=== PATIENT | female | born 1950 | race Caucasian/White ===

== ENCOUNTER 2024-04-09 13:49 | Outpatient (AMB) | payer MEDICARE, SELFPAY ==
--- NOTE | 2024-04-09 13:48 | A.OFFPC_ITS ---
Vital Signs 04/09/24 14:10 Height 5 ft 10 in Weight 218 lb 4 oz BMI 31.3 BP 102/50 L Blood Pressure Location Lt brachial Position Sitting Respiration 16 Pulse 85 Pulse Source Pulse Oximeter Temp 97.8 F Temp Source Oral Pulse Oximetry (%) 95 Oxygen Delivery Method Room Air Intake Visit Reasons: PROPOSAL MANAGER- Establish care/hbp/lung problems Intake Note: New patient visit. Went to [facility] couple weeks ago Sole Rougher Required: No Allergies No Known Allergies Allergy (Verified 04/09/24 14:03) Tobacco use date assessed: 04/09/24 Fall risk assessment: 1 Fall in past year Dental Screening Dental Screen Date: 04/09/24 Did you have a dental visit in the last 12 months?: Yes Did you have a dental problem in the last 6 months where you did not have access to dental care?: No Was dental information given to patient?: Patient has dentist HPI PROPOSAL MANAGER- Establish care/hbp/lung problems HPI Details Patient is a 73-year-old female with a significant past medical history of hypertension, CKD, history of abdominal aortic aneurysm, impaired fasting glucose, hyperlipidemia, hypothyroidism, GERD, fatty liver/early cirrhosis, COPD, pulmonary nodules, sleep apnea presenting today to establish care/follow up. She is transferring from [facility]. She lives 6 months of the year in [place] and has a PCP there. Pulm: She was recently hospitalized at [facility] for hypoxia and is now O2 dependent. She states that she does not actually believe that this is related to her lungs. Every time she goes and stands up her oxygen drops down to 80 or 70. She states that she was sent there from her ore dressing engineer's office, Dr. Clements to rule out PE. She states that they could not come up with a reason for her oxygen to be so low. She states that she repeated her PFTs and they were stable/unchanged from her baseline PFTs. He ordered an echo and she states that this was done yesterday and she has an appointment with him today at 03:30 to get the test results. She states that she needs a referral to Cardiology here. She has 1 in [place] and saw her groover and turner at the end of February but did not have anything happened. She states that she was stable when she saw her groover and turner and then when she got here a couple weeks ago she felt very weak whenever she would get up. She has dyspnea with exertion and states that she is at her baseline with it. She says that she does not really feel like this is a breathing issue. She has been wearing a pulse ox at home and has noticed at times her pulses as low as 40. CV: Blood pressure today in the office is 102/50. She last saw her groover and turner end of February and no changes were made. She says that she did have a stress test within the last couple years which was negative. She is currently on amlodipine 5 mg, losartan 100 mg and furosemide 10 mg daily. GI: She had an ultrasound 2 weeks ago and states it was unchanged. She follows with GI, Dr. Ren and sees him next month. Endo: Believes her last TSH was WNL. On levothyroxine 137 mcg.. [facility], [facility] Medical History (Updated 04/09/24 @ 14:42 by Rachel Tian PA-C) History of gastrectomy Steatosis of liver Sleep apnea Herpes simplex labialis Pulmonary emphysema Polyp of colon Class 1 obesity Multiple nodules of lung Lung mass Kidney stones Hypothyroidism HTN (hypertension) HLD (hyperlipidemia) GERD (gastroesophageal reflux disease) Diffuse goiter Depressive disorder Cyst of breast Cirrhosis of liver Chronic obstructive lung disease Benign neoplasm of colon Aortic stenosis Allergic rhinitis Abnormal glucose AAA (abdominal aortic aneurysm) Surgical History (Updated 04/09/24 @ 14:00 by Naomy Adam CMA) History of oophorectomy, unilateral History of total knee arthroplasty History of breast surgery Hx of laparoscopic gastric banding Hx of cholecystectomy S/P laparoscopic sleeve gastrectomy S/P AAA repair Social History (Updated 04/09/24 @ 14:05 by Naomy Adam CMA) Housing: House Patient Tobacco Use Status: Former Tobacco user Cigarette Packs Per Day: 2 Years Smoked: 20 e-Cigarette/Vaping Use: Never Used Second Hand Smoke Exposure: No service: No Current occupational status: retired Cognitive needs: No Hearing needs: No Vision needs: Yes (Reading glasses) Physical exam (Primary Care) Const Orientation/consciousness: patient oriented x3 HENMT Ears: hearing grossly normal bilaterally Neck Thyroid: Thyroid normal Lymphatic: no lymphadenopathy noted Resp Auscultation: clear to auscultation bilaterally Cardio Rate: regular rate Rhythm: regular rhythm Heart sounds: S1 normal heart sound present and S2 normal heart sound present GI Inspection: Yes normal to inspection Palpation (GI): Soft to palpation and Other GI palpation findings present (nontender, no cva tenderness) Auscultation: normoactive bowel sounds Rectal Exam - Female: deferred Skin General skin exam: no rashes or lesions noted Neuro General: patient oriented x3, gait normal and no focal motor deficits Assessment and Plan Assessment & Plan (1) Pulmonary emphysema: Code(s): J43.9 - Emphysema, unspecified Qualifiers: Emphysema type: unspecified Qualified Code(s): J43.9 - Emphysema, unspecified Plan: Following with pulmonology. Currently oxygen dependent. Notes requested today. (2) O2 dependent: Code(s): Z99.81 - Dependence on supplemental oxygen Plan: As above (3) HTN (hypertension): Code(s): I10 - Essential (primary) hypertension Qualifiers: Hypertension type: primary hypertension Qualified Code(s): I10 - Essential (primary) hypertension Plan: Reduced dose of the losartan to 50 mg. Continue regimen otherwise. Follow up in 2-3 weeks. (4) HLD (hyperlipidemia): Code(s): E78.5 - Hyperlipidemia, unspecified Qualifiers: Hyperlipidemia type: mixed hyperlipidemia Qualified Code(s): E78.2 - Mixed hyperlipidemia Plan: On pravastatin and tolerating well. Lipids and LFTs ordered. (5) Hypoxia: Code(s): R09.02 - Hypoxemia Plan: On oxygen. Referral to Cardiology. Reports labs from hospitalization and imaging all stable. Notes were requested today. She wants to see her 's groover and turner who is at [place]. (6) Bradycardia: Code(s): R00.1 - Bradycardia, unspecified Plan: As above. Orders: Orders Complete Blood Count Auto Diff Today E78.5 - Hyperlipidemia, unspecified, I10 - Essential (primary) hypertension, J43.9 - Emphysema, unspecified, R00.1 - Bradycardia, unspecified, R09.02 - Hypoxemia, Z99.81 - Dependence on supplemental oxygen Comprehensive [place]. Panel Fast Today E78.5 - Hyperlipidemia, unspecified, I10 - Essential (primary) hypertension, J43.9 - Emphysema, unspecified, R00.1 - Bradycardia, unspecified, R09.02 - Hypoxemia, Z99.81 - Dependence on supplemental oxygen Lipid Panel Today E78.5 - Hyperlipidemia, unspecified, I10 - Essential (primary) hypertension, J43.9 - Emphysema, unspecified, R00.1 - Bradycardia, unspecified, R09.02 - Hypoxemia, Z99.81 - Dependence on supplemental oxygen TSH reflex Free T4 Today E78.5 - Hyperlipidemia, unspecified, I10 - Essential (primary) hypertension, J43.9 - Emphysema, unspecified, R00.1 - Bradycardia, uns pecified, R09.02 - Hypoxemia, Z99.81 - Dependence on supplemental oxygen Referrals Cardiology Referral I10 - Essential (primary) hypertension, R00.1 - Bradycardia, unspecified, R09.02 - Hypoxemia Medications: New losartan 50 mg PO DAILY 90 tabs 1RF Coding Level of Care Code Est Pt Level 4 (42733) Complex EM visit Add On G2211 Diagnoses Pulmonary emphysema, unspecified emphysema type J43.9 Emphysema type: unspecified O2 dependent Z99.81 Primary hypertension I10 Hypertension type: primary hypertension Mixed hyperlipidemia E78.2 Hyperlipidemia type: mixed hyperlipidemia Hypoxia R09.02 Bradycardia R00.1
[2024-04-09 14:10] VITALS: BP 102/50; PULSE 85; RESP 16; TEMP 36.6; O2SAT 95; BMI 31.3
== END 2024-04-09 14:37 | disposition home or self-care (01) ==
PROVIDERS: PCP Physician Assistant; Visit Provider Physician Assistant
DX: J43.9 Emphysema, unspecified (principal); Z99.81 Dependence on supplemental oxygen; I10 Essential (primary) hypertension; E78.2 Mixed hyperlipidemia; R09.02 Hypoxemia; R00.1 Bradycardia, unspecified
CPT/HCPCS: 99214; G2211

== ENCOUNTER 2024-04-29 09:51 | Outpatient (REF) | payer MEDICARE, SELFPAY ==
[2024-04-29 13:10] LABS: MANUAL DIFF FLAG NO
[2024-04-29 13:11] LABS: Basophils Percent Auto 0.4 % (0-2); Eosinophils Absolute Auto 0.1 X10*3/uL (0.0-0.4); Eosinophils Percent Auto 1.6 % (0-4); Hematocrit 45.6 % (37.0-47.0); Hemoglobin 14.6 g/dl (12.0-16.0); Imm Gran Abs Auto 0.04 X10*3/uL (0.00-0.03); Imm Gran Pct Auto 0.7 % (0.0-0.4); Lymphocytes Absolute Auto 1.6 X10*3/uL (1.2-4.9); Lymphocytes Percent Auto 28.9 % (20-40); Mean Corpuscular Hemoglobin 30.2 pg (27.0-33.0); Mean Corpuscular Volume 94.4 fL (80.0-98.0); Mean Platelet Volume 10.3 fL (9.4-12.3); Monocytes Absolute Auto 0.6 X10*3/uL (0.1-1.2); Monocytes Percent Auto 10.2 % (2-11); Neutrophils Absolute Auto 3.3 x10*3/uL (2.0-8.3); Neutrophils Percent Auto 58.2 % (45-73); Platelet Count 169 X10*3/uL (160-400); Red Blood Count 4.83 X10*6/uL (4.20-5.50); Red Cell Distribution Width 13.7 % (11.0-16.0); White Blood Count 5.6 X10*3/uL (4.8-10.8)
[2024-04-29 13:41] LABS: Alanine Aminotransferase 23 U/L (0-31); Albumin Level 4.2 g/dL (3.5-5.0); Alkaline Phosphatase 85 U/L (39-117); Anion Gap 12 (12-20); Aspartate Amino Transferase 28 U/L (5-31); Bilirubin Total 1.5 mg/dL (0.0-1.0); Blood Urea Nitrogen 20 mg/dL (9-16); Calcium 9.7 mg/dL (8.4-10.2); Carbon Dioxide 28 mmol/L (22-29); Chloride 107 mmol/L (96-108); Cholesterol 171 mg/dL (<200); Estimated Glomerular Filt Rate 58; Glucose Fasting 91 mg/dL (60-99); HDL Cholesterol 52 mg/dL (>40); Potassium 4.4 mmol/L (3.3-5.1); Sodium 143 mmol/L (135-145); Total Protein 7.7 g/dL (6.5-8.0)
[2024-04-29 13:56] LABS: TSH reflex Free T4 0.06 uIU/mL (0.32-4.0)
[2024-04-29 14:01] LABS: LDL Cholesterol Calculated 102 mg/dL (<100); Triglycerides 88 mg/dL (<150)
[2024-04-29 14:38] LABS: Free T4 (Free Thyroxine) 1.19 ng/dL (0.71-1.85)
== END 2024-04-29 09:52 | disposition home or self-care (01) ==
LOC: HO.WFDLDS 09:51
PROVIDERS: Visit Provider Physician Assistant
DX: R00.1 Bradycardia, unspecified (principal); R09.02 Hypoxemia; E78.5 Hyperlipidemia, unspecified; I10 Essential (primary) hypertension; Z99.81 Dependence on supplemental oxygen; J43.9 Emphysema, unspecified
CPT/HCPCS: 36415; 80053; 80061; 84439; 84443; 85025

== ENCOUNTER 2024-04-29 09:57 | Outpatient (AMB) | payer MEDICARE, SELFPAY ==
--- NOTE | 2024-04-29 09:59 | AM.OFFWIN_ITS ---
Intake Vital Signs 04/29/24 10:10 BMI Reason not done Patient refused/unable BP 128/68 Blood Pressure Location Rt brachial Pulse 62 Pulse Source Pulse Oximeter Temp 98.1 F Temp Source Oral Pulse Oximetry (%) 95 Oxygen Delivery Method Nasal Cannula Oxygen Flow Rate 2 Intake Visit Reasons: est/ uti Intake Note: UTI symptoms. Urgency. Patient Tobacco Use Status: Former Tobacco user Allergies No Known Allergies Allergy (Verified 04/29/24 10:36) Medication List - Last Reconciled 04/29/24 by SUKHDEV Katz-IQRA albuterol sulfate 90 mcg/actuation (Ventolin HFA) 1 inh inhalation QID amlodipine 5 mg PO BID cholecalciferol (vitamin D3) 1,250 mcg PO QWEEK fluoxetine 20 mg PO DAILY fluticasone propion-salmeterol 250-50 mcg/dose 1 ea inhalation BID levothyroxine 137 mcg PO DAILY losartan 50 mg PO DAILY omeprazole 20 mg PO BID pravastatin 80 mg PO DAILY torsemide 10 mg PO DAILY valacyclovir 1,000 mg PO BID Do you need a note to return to daycare/school/sports/work: No HPI HPI Comments History of Present Illness Details Here today with complaints of UTI symptoms that started a few days ago. She reports symptoms of urinary frequency with little output. Reports that she has had a UTI in the past. The last one was 1-2 years ago. Denies fever, chills, bloody urine or discharge. Furthermore she denies any renal disease, need for renal dosing. Awake alert oriented Mucous membranes moist No CVAT No suprapubic tenderness Urine dip reviewed and positive for nitrites Plan Nitrofurantoin 100 mg 1 tab p.o. b.i.d. x3 days. Vaginal hygiene. [place] hydration. Educated on reasons to return to the office or to be re- evaluated. [facility] Medical History (Updated 04/29/24 @ 10:42 by SUKHDEV Katz-IQRA) History of gastrectomy Steatosis of liver Sleep apnea Herpes simplex labialis Pulmonary emphysema Polyp of colon Class 1 obesity Multiple nodules of lung Lung mass Kidney stones Hypothyroidism HTN (hypertension) HLD (hyperlipidemia) GERD (gastroesophageal reflux disease) Diffuse goiter Depressive disorder Cyst of breast Cirrhosis of liver Chronic obstructive lung disease Benign neoplasm of colon Aortic stenosis Allergic rhinitis Abnormal glucose AAA (abdominal aortic aneurysm) Surgical History (Updated 04/09/24 @ 14:00 by Naomy Adam CMA) History of oophorectomy, unilateral History of total knee arthroplasty History of breast surgery Hx of laparoscopic gastric banding Hx of cholecystectomy S/P laparoscopic sleeve gastrectomy S/P AAA repair Social History (Updated 04/09/24 @ 14:05 by Naomy Adam CMA) Housing: House Patient Tobacco Use Status: Former Tobacco user Cigarette Packs Per Day: 2 Years Smoked: 20 e-Cigarette/Vaping Use: Never Used Second Hand Smoke Exposure: No service: No Current occupational status: retired Cognitive needs: No Hearing needs: No Vision needs: Yes (Reading glasses) Physical Exam Vital Signs: Last Vital Signs Temp 98.1 F 04/29/24 10:10 Pulse 62 04/29/24 10:10 BP 128/68 04/29/24 10:10 Pulse Ox 95 04/29/24 10:10 Oxygen Delivery Method Nasal Cannula 04/29/24 10:10 Oxygen Flow Rate 2 04/29/24 10:10 Results AMB Urinalysis Dipstick UR Leukocytes Large Last Edit by Naomy Adam CMA on 04/29/24 10:17 UR Nitrite Positive Last Edit by Naomy Adam CMA on 04/29/24 10:17 UR Urobilinogen Normal Last Edit by Naomy Adam CMA on 04/29/24 10:17 UR Protein Trace Last Edit by Naomy Adam CMA on 04/29/24 10:17 UR Ph 6.5 Last Edit by Naomy Adam CMA on 04/29/24 10:17 UR Blood Negative Last Edit by Naomy Adam CMA on 04/29/24 10:17 UR Specific [place] 1.015 Last Edit by Naomy Adam CMA on 04/29/24 10: 17 UR Ketone Negative Last Edit by Naomy Adam CMA on 04/29/24 10:17 UR Bilirubin Negative Last Edit by Naomy Adam CMA on 04/29/24 10:17 UR Glucose Negative Last Edit by Naomy Adam CMA on 04/29/24 10:17 Results Reviewed Results Reviewed: Laboratory Last Values Urine pH (Clinic) 6.5 04/29/24 10:14 Specific [place] (Clinic) 1.015 04/29/24 10:14 Ur Protein (Clinic) Trace 04/29/24 10:14 Ur Ketones (Clinic) Negative 04/29/24 10:14 Urine Blood (Clinic) Negative 04/29/24 10:14 Urine Nitrite Positive 04/29/24 10:14 Urine Bilirubin (Clinic) Negative 04/29/24 10:14 Urobilinogen (Clinic) Normal 04/29/24 10:14 Leukocyte Esterase (Clinic) Large 04/29/24 10:14 Urine Glucose (Clinic) Negative 04/29/24 10:14 Assessment & Plan Assessment & Plan (1) UTI (urinary tract infection): Code(s): N39.0 - Urinary tract infection, site not specified Qualifiers: Urinary tract infection type: acute cystitis Hematuria presence: without hematuria Qualified Code(s): N30.00 - Acute cystitis without hematuria Plan: . Plan . Orders: Orders AMB Urinalysis Dipstick Today R39.15 - Urgency of urination Medications: New nitrofurantoin monohyd/m-cryst 100 mg must administer with a meal/food 100 mg PO Q12H 3 days 6 caps 0RF Coding Level of Care Code Est Pt Level 3 (53634) Diagnoses Acute cystitis without hematuria N30.00 Urinary tract infection type: acute cystitis Hematuria presence: without hematuria
[2024-04-29 10:10] VITALS: BP 128/68; PULSE 62; TEMP 36.7; O2SAT 95
== END 2024-04-29 11:22 | disposition home or self-care (01) ==
PROVIDERS: PCP Physician Assistant; Visit Provider Nurse Practitioner Family
DX: R39.15 Urgency of urination (principal); N30.00 Acute cystitis without hematuria
CPT/HCPCS: 81002; 99213

== ENCOUNTER 2024-05-06 13:56 | Outpatient (AMB) | payer MEDICARE, SELFPAY ==
--- NOTE | 2024-05-06 14:03 | A.OFFPC_ITS ---
Vital Signs 05/06/24 14:05 Height 5 ft 10 in Weight 231 lb 2 oz BMI 33.2 BP 136/64 Blood Pressure Location Lt brachial Position Sitting Pulse 61 Pulse Source Pulse Oximeter Pulse Oximetry (%) 93 Oxygen Delivery Method Room Air Intake Visit Reasons: f/u sob, hospitalization, 30 min Intake Note: Follow up Allergies No Known Allergies Allergy (Verified 05/06/24 14:04) Tobacco use date assessed: 04/09/24 Dental Screening Dental Screen Date: 04/09/24 HPI f/u sob, hospitalization, 30 min HPI Details atesequiel is a 73-year-old female with a significant past medical history of hypertension, CKD, history of abdominal aortic aneurysm, impaired fasting glucose, hyperlipidemia, hypothyroidism, GERD, fatty liver/early cirrhosis, [employer] D, pulmonary nodules, sleep apnea presenting today to establish care/follow up. She is transferring from [facility]. She lives 6 months of the year in [place] and has a PCP there. Pulm: She was recently hospitalized at [facility] for hypoxia and is now O2 dependent. She states that she does not actually believe that this is related to her lungs. Every time she goes and stands up her oxygen drops down to 80 or 70. She states that she was sent there from her software design manager's office, Dr. Clements to rule out PE. She states that they could not come up with a reason for her oxygen to be so low. She states that she repeated her PFTs and they were stable/unchanged from her baseline PFTs with copd. He ordered an echo and she states that this was done a month ago and no results yet. She saw Dr. Lam who is doing a stress test out of abundence of caution . She has 1 in [place] and saw her rod buster helper at the end of February but did not have anything happen. She has dyspnea with exertion and states that she is at her baseline with it. She says that she does not really feel like this is a breathing issue. She has been wearing a pulse ox at home and has noticed at times her pulses as low as 40. She is seeing someone at [facility] for a 2nd opinion in June. CV: Blood pressure today in the office is 136/64. She is currently on amlodipine 5 mg, losartan 100 mg and furosemide as needed GI: She had an ultrasound 2 weeks ago and states it was unchanged. She follows with GI, Dr. Ren and sees him next month. Endo: Last TSH was low. Reduce levothyroxine to 125 mcg. She will repeat her TSH in a few weeks. [facility] Medical History (Updated 04/29/24 @ 14:53 by Rachel Tian PA-C) History of gastrectomy Steatosis of liver Sleep apnea Herpes simplex labialis Pulmonary emphysema Polyp of colon Class 1 obesity Multiple nodules of lung Lung mass Kidney stones Hypothyroidism HTN (hypertension) HLD (hyperlipidemia) GERD (gastroesophageal reflux disease) Diffuse goiter Depressive disorder Cyst of breast Cirrhosis of liver Chronic obstructive lung disease Benign neoplasm of colon Aortic stenosis Allergic rhinitis Abnormal glucose AAA (abdominal aortic aneurysm) Surgical History (Updated 04/09/24 @ 14:00 by Naomy Adam CMA) History of oophorectomy, unilateral History of total knee arthroplasty History of breast surgery Hx of laparoscopic gastric banding Hx of cholecystectomy S/P laparoscopic sleeve gastrectomy S/P AAA repair Social History (Updated 04/09/24 @ 14:05 by Naomy Adam CMA) Housing: House Patient Tobacco Use Status: Former Tobacco user Cigarette Packs Per Day: 2 Years Smoked: 20 e-Cigarette/Vaping Use: Never Used Second Hand Smoke Exposure: No service: No Current occupational status: retired Cognitive needs: No Hearing needs: No Vision needs: Yes (Reading glasses) Physical exam (Primary Care) Vital Signs: Last Vital Signs Pulse 61 05/06/24 14:05 BP 136/64 05/06/24 14:05 Pulse Ox 93 05/06/24 14:05 Oxygen Delivery Method Room Air 05/06/24 14:05 BMI result Body Mass Index 33.2 Tobacco/Smoking Status: Tobacco use Status Tobacco use date assessed 04/09/24 05/06/24 14:08 Patient Tobacco Use Status Former Tobacco user 05/06/24 14:08 e-Cigarette/Vaping Use Never Used 05/06/24 14:08 Const Orientation/consciousness: patient oriented x3 HENMT Ears: hearing grossly normal bilaterally Neck Thyroid: Thyroid normal Lymphatic: no lymphadenopathy noted Resp Auscultation: clear to auscultation bilaterally Cardio Rate: regular rate Rhythm: regular rhythm Heart sounds: S1 normal heart sound present and S2 normal heart sound present GI Inspection: Yes normal to inspection Palpation (GI): Soft to palpation and Other GI palpation findings present (nontender, no cva tenderness) Auscultation: normoactive bowel sounds Rectal Exam - Female: deferred Skin General skin exam: no rashes or lesions noted Neuro General: patient oriented x3, gait normal and no focal motor deficits Assessment and Plan Assessment & Plan (1) O2 dependent: Code(s): Z99.81 - Dependence on supplemental oxygen Plan: Continue with oxygen (2) Pulmonary emphysema: Code(s): J43.9 - Emphysema, unspecified Qualifiers: Emphysema type: unspecified Qualified Code(s): J43.9 - Emphysema, unspecified Plan: Follow up with pulmonology and for her 2nd opinion. She will let me know what comes of this. I have requested echo results. (3) HTN (hypertension): Code(s): I10 - Essential (primary) hypertension Qualifiers: Hypertension type: primary hypertension Qualified Code(s): I10 - Essential (primary) hypertension Plan: Continue current regimen (4) Hypothyroidism: Code(s): E03.9 - Hypothyroidism, unspecified Plan: We will recheck in 4 weeks. Coding Level of Care Code Est Pt Level 4 (39752) Diagnoses O2 dependent Z99.81 Pulmonary emphysema, unspecified emphysema type J43.9 Emphysema type: unspecified Primary hypertension I10 Hypertension type: primary hypertension Hypothyroidism E03.9
[2024-05-06 14:05] VITALS: BP 136/64; PULSE 61; O2SAT 93; BMI 33.2
== END 2024-05-06 14:55 | disposition home or self-care (01) ==
PROVIDERS: PCP Physician Assistant; Visit Provider Physician Assistant
DX: Z99.81 Dependence on supplemental oxygen (principal); J43.9 Emphysema, unspecified; I10 Essential (primary) hypertension; E03.9 Hypothyroidism, unspecified
CPT/HCPCS: 99214

== ENCOUNTER 2024-05-13 14:21 | Outpatient (REF) | payer MEDICARE, SELFPAY ==
[2024-05-13 17:37] LABS: Appearance Urine Clear; Color Urine Yellow; Glucose Urine UA Negative (Negative); Leukocyte Esterase Urine Negative (Negative); Nitrite Urine Negative (Negative); PH 5.5 (5.0-9.0); Specific Gravity - Urine <= 1.005 (1.005-1.025); Urine Blood Negative (Negative); Urine Ketones Negative (Negative); Urine Protein Negative (Neg-Trace)
== END 2024-05-13 14:22 | disposition home or self-care (01) ==
LOC: HO.WFDLDS 14:21
PROVIDERS: Visit Provider Physician Assistant
DX: N30.00 Acute cystitis without hematuria (principal)
CPT/HCPCS: 81003

== ENCOUNTER 2024-05-27 14:21 | Outpatient (REF) | payer MEDICARE, SELFPAY ==
[2024-05-27 19:02] LABS: TSH reflex Free T4 0.45 uIU/mL (0.32-4.0)
== END 2024-05-27 14:22 | disposition home or self-care (01) ==
LOC: HO.WFDLDS 14:21
PROVIDERS: Visit Provider Physician Assistant
DX: E03.9 Hypothyroidism, unspecified (principal)
CPT/HCPCS: 36415; 84443